=== PATIENT | female | born 1975 | race Caucasian/White ===

== ENCOUNTER 2016-10-27 02:34 | Emergency (ER) | payer MEDICARE, MEDICAID ==
[~2016-10-27] VITALS: Ht 172.7 cm; Wt 153.8 kg
[~2016-10-27 02:34] MED LIST: TRAM50TA PO
[2016-10-27] MEDS ORDERED: IV NORMAL SALINE 1000ML BAG 1,000 ML IV SCH (03:15)
[2016-10-27 03:49] LABS: BASO # 0.1 x10^3/uL (0.0-0.2); BASO % 1 % (0-3); EOS % 3 % (0-3); HEMATOCRIT 36.8 % (36.0-47.0); HEMOGLOBIN 11.9 g/dL (12.0-15.5); LYMPH # 1.9 x10^3/uL (1.0-4.8); LYMPH % 34 % (24-48); MEAN CORPUSCULAR HEMOGLOBIN 28 pg (25-35); MEAN CORPUSCULAR HGB CONC 33 g/dL (31-37); MEAN CORPUSCULAR VOLUME 85 fL (79-100); MONO % 9 % (0-9); NEUT % 53 % (31-73); PLATELET COUNT 180 x10^3/uL (140-400); RED BLOOD COUNT 4.31 x10^6/uL (3.50-5.40); RED CELL DISTRIBUTION WIDTH 14.1 % (11.5-14.5); WHITE BLOOD COUNT 5.6 x10^3/uL (4.0-11.0)
[2016-10-27] MEDS ORDERED: INSULIN REGULAR 100 UNIT/ML 10ML VIAL. IV ONE (04:00)
[2016-10-27 04:02] LABS: CALCIUM 9.4 mg/dL (8.5-10.1); GFR 60.5
[2016-10-27 04:07] LABS: ALBUMIN/GLOBULIN RATIO 0.7 (1.0-1.7); TOTAL BILIRUBIN 0.5 mg/dL (0.2-1.0); TOTAL PROTEIN 7.3 g/dL (6.4-8.2)
[2016-10-27 04:08] LABS: BILIRUBIN,URINE NEGATIVE (NEG); GLUCOSE,URINE >=1000 mg/dL (NEG); NITRITE,URINE NEGATIVE (NEG); PROTEIN,URINE NEGATIVE (NEG-TRACE); UROBILINOGEN,URINE 0.2 mg/dL (0.2 mg/dL)
[2016-10-27 04:09] LABS: NEG OBC SER NEG; POS OBC SER POS
[2016-10-27 04:16] LABS: BACTERIA,URINE FEW /HPF (0-FEW); RBC,URINE 0 /HPF (0-2); SQUAMOUS EPITHELIAL CELL,UR FEW /LPF; YEAST,URINE PRESENT /HPF
[2016-10-27 04:29] VITALS: BP 117/71
[2016-10-27] MEDS ORDERED: ONDA4TAB10 SL (04:34)
--- NOTE | 2016-10-27 04:34 | PHYS DOC ---
Past Medical History Past Medical History: Diabetes-Type II, High Cholesterol Additional Past Medical Histor: GORLIN'S SYNDROME Past Surgical History: Cholecystectomy, Other Additional Past Surgical Histo: CYST REMOVAL Alcohol Use: None Drug Use: None Adult General Chief Complaint Chief Complaint: HYPERGLYCEMIA HPI HPI Patient is a 41 year old with a history significant for atrial fibrillation, asthma, diabetes, hypertension presents ER today secondary to an elevated blood sugar 495. Patient reports that she takes Tarceva for her diabetes. Patient denies any fevers shakes chills nausea vomiting diarrhea cough cold runny nose abdominal pain chest pain shortness of breath. Patient reports that her doctor is aware of her blood sugar being elevated and they have tried to see the doctor on insulin. Patient denies any dysuria frequency or urgency. Patient denies any polyuria polydipsia. Patient's physical exam is unremarkable. She is alert awake oriented 3. She is morbidly obese. Patient's labs in the ED were all unremarkable. Patient's blood sugar was elevated however there was no anion gap and no acidosis. Patient's UA did not reveal any ketones. Patient is given a liter of saline in the ED as well as 5 units of insulin and will be discharged home in stable condition with instructions to follow-up with her primary care doctor with her blood sugar diary so that they can assess her need for insulin and continue with her plan for dietary control. Review of Systems Review of Systems Constitutional: Denies fever or chills [] Eyes: Denies change in visual acuity, redness, or eye pain [] All other review systems are negative except as documented in the history of present illness portion. Current Medications Current Medications Current Medications Medications (Trade) Dose Ordered Sig/Madonna Start Time Stop Time Status Last Admin Dose Admin Insulin Human Regular (Novolin R Vial) 5 unit 1X ONCE 10/27/16 04:00 10/27/16 04:01 DC 10/27/16 03:43 5 UNIT Sodium Chloride (Iv Sodium Chloride 0.9% 1000ml Bag) 1,000 ml @ 1,000 mls/hr Q1H 10/27/16 03:15 10/27/16 04:14 DC 10/27/16 03:15 1,000 MLS/HR Allergies Allergies Allergies Coded Allergies Type Severity Reaction Last Updated Verified Penicillins Allergy Intermediate 10/27/16 Yes adhesive Allergy Intermediate 10/27/16 Yes amoxicillin Allergy Intermediate 10/27/16 Yes black pepper Allergy Intermediate 10/27/16 Yes hydrogen peroxide Allergy Intermediate 10/27/16 Yes latex Allergy Intermediate 10/27/16 Yes onion Allergy Intermediate 10/27/16 Yes sumatriptan Allergy Intermediate 10/27/16 Yes Physical Exam Physical Exam Constitutional: Well developed, well nourished, no acute distress, non-toxic appearance. [] HENT: Normocephalic, atraumatic, bilateral external ears normal, oropharynx moist, no oral exudates, nose normal. [] Eyes: PERRLA, EOMI, conjunctiva normal, no discharge. [] Neck: Normal range of motion, no tenderness, supple, no stridor. [] Cardiovascular:Heart rate regular rhythm, no murmur [] Lungs & Thorax: Bilateral breath sounds clear to auscultation [] Abdomen: Bowel sounds normal, soft, no tenderness, no masses, no pulsatile masses. [] Extremities: No tenderness, no cyanosis, no clubbing, ROM intact, no edema. [] Neurologic: Alert and oriented X 3, normal motor function, normal sensory function, no focal deficits noted. [] Psychologic: Affect normal, judgement normal, mood normal. [] Current Patient Data Vital Signs Vital Signs Date Time Temp Pulse Resp B/P Pulse Ox O2 Delivery O2 Flow Rate FiO2 10/27/16 02:48 96.8 90 20 119/72 96 Room Air 96.8 Lab Values Laboratory Tests Test 10/27/16 02:48 10/27/16 03:30 10/27/16 03:45 10/27/16 03:55 Glucose (Fingerstick) 364mg/dL (70-99) H White Blood Count 5.6x10^3/uL (4.0-11.0) Red Blood Count 4.31x10^6/uL (3.50-5.40) Hemoglobin 11.9g/dL (12.0-15.5) L Hematocrit 36.8% (36.0-47.0) Mean Corpuscular Volume 85fL (79-100) Mean Corpuscular Hemoglobin 28pg (25-35) Mean Corpuscular Hemoglobin Concent 33g/dL (31-37) Red Cell Distribution Width 14.1% (11.5-14.5) Platelet Count 180x10^3/uL (140-400) Neutrophils (%) (Auto) 53% (31-73) Lymphocytes (%) (Auto) 34% (24-48) Monocytes (%) (Auto) 9% (0-9) Eosinophils (%) (Auto) 3% (0-3) Basophils (%) (Auto) 1% (0-3) Neutrophils # (Auto) 3.0x10^3uL (1.8-7.7) Lymphocytes # (Auto) 1.9x10^3/uL (1.0-4.8) Monocytes # (Auto) 0.5x10^3/uL (0.0-1.1) Eosinophils # (Auto) 0.1x10^3/uL (0.0-0.7) Basophils # (Auto) 0.1x10^3/uL (0.0-0.2) Sodium Level 135mmol/L (136-145) L Potassium Level 4.0mmol/L (3.5-5.1) Chloride Level 99mmol/L (98-107) Carbon Dioxide Level 32mmol/L (21-32) Anion Gap 4 (6-14) L Blood Urea Nitrogen 14mg/dL (7-20) Creatinine 1.0mg/dL (0.6-1.0) Estimated GFR (Cockcroft-Gault) 60.5 BUN/Creatinine Ratio 14 (6-20) Glucose Level 341mg/dL (70-99) H Calcium Level 9.4mg/dL (8.5-10.1) Total Bilirubin 0.5mg/dL (0.2-1.0) Aspartate Amino Transferase (AST) 12U/L (15-37) L Alanine Aminotransferase (ALT) 16U/L (14-59) Alkaline Phosphatase 51U/L (46-116) Total Protein 7.3g/dL (6.4-8.2) Albumin 3.0g/dL (3.4-5.0) L Albumin/Globulin Ratio 0.7 (1.0-1.7) L Serum Test, Qualitative Negative (NEG) Urine Collection Type Unknown Urine Color Yellow Urine Clarity Clear Urine pH 5.0 Urine Specific Gould >=1.030 Urine Protein Negativemg/dL (NEG-TRACE) Urine Glucose (UA) >=1000mg/dL (NEG) Urine Ketones (Stick) Negativemg/dL (NEG) Urine Blood Negative (NEG) Urine Nitrite Negative (NEG) Urine Bilirubin Negative (NEG) Urine Urobilinogen Dipstick 0.2mg/dL (0.2 mg/dL) Urine Leukocyte Esterase Negative (NEG) Urine RBC 0/HPF (0-2) Urine WBC 1-4/HPF (0-4) Urine Squamous Epithelial Cells Few/LPF Urine Bacteria Few/HPF (0-FEW) Urine Mucus Slight/LPF Urine Yeast Present/HPF POC Urine HCG, Qualitative Hcg negative (Negative) Laboratory Tests 10/27/16 03:30 Laboratory Tests 10/27/16 03:30 EKG EKG [] Radiology/Procedures Radiology/Procedures [] Course & Med Decision Making Course & Med Decision Making Pertinent Labs and Imaging studies reviewed. (See chart for details) [] Dragon Disclaimer Dragon Disclaimer This electronic medical record was generated, in whole or in part, using a voice recognition dictation system. Departure Departure Impression: Primary Impression: Hyperglycemia Additional Impression: Nausea Disposition: 01 HOME, SELF-CARE Condition: IMPROVED Referrals: SHAQ MATUTE MD (PCP) Patient Instructions: Insulin Treatment in Diabetes, Type 2 Diabetes Mellitus, Adult Scripts Ondansetron (Zofran Odt)4 Mg Tab.rapdis1 Tab SL Q6HRS PRN NAUSEA #12 TAB Prov:JEREMIAS HAMM MD 10/27/16 Problem Qualifiers JEREMIAS HAMM MD Oct 27, 2016 04:34
[2016-10-27] MEDS ORDERED: ONDANSETRON PF 4 MG/2 ML VIAL. IV ONE (05:00)
== END 2016-10-27 04:55 | disposition home or self-care (01) ==
LOC: ER 02:34
DX: E11.65 Type 2 diabetes mellitus with hyperglycemia (principal); R11.0 Nausea; I48.91 Unspecified atrial fibrillation; E78.00 Pure hypercholesterolemia, unspecified; J45.909 Unspecified asthma, uncomplicated; I10 Essential (primary) hypertension; Z90.49 Acquired absence of other specified parts of digestive tract; Z88.0 Allergy status to penicillin; Z88.1 Allergy status to other antibiotic agents; Z91.018 Allergy to other foods; Z91.040 Latex allergy status; Z88.8 Allergy status to other drugs, medicaments and biological substances
CPT/HCPCS: 36415; 80053; 81001; 81025; 82947; 84703; 85027; 96361; 96374; 96375; 99284; J2405; J7030; J1815

== ENCOUNTER → 2018-10-17 | Outpatient (CLI) | payer MEDICARE, MEDICAID ==
[2017-08-06 15:00] VITALS: BP 109/66
[~2018-10-17] MED LIST changes: +ARIP15TA3 PO; +ATOR40TA59 PO; +BENZ1TAB5 PO; +BUPR300T4 PO; +CANA300T PO; +CETI10TA16 PO; +CYCL10TA2 PO; +DULO60CA6 PO; +ESCITALOPRAM OX10 MG PO; +GABA600T7 PO; +INSU100I30 SQ; +LEVO100T PO; +LEVO75TA5 PO; +LORA1TAB PO; +METF500T16 PO; +OMEP20TA8 PO; +ONDA4TAB10 SL; +PIOG15TA42 PO; +PROP120C3 PO; +RIZA10TA10 PO; +VALA500T PO; +VENL37.57 PO
--- NOTE | 2018-10-17 15:11 | KCIC ---
MRI of the lumbar spine without contrast 10/17/2018 CLINICAL HISTORY: Chronic low back pain which radiates down both feet. TECHNIQUE: Unenhanced T1-weighted and T2-weighted sagittal and axial and inversion recovery sagittal images of the lumbar spine were obtained. FINDINGS: Comparison is made to a CT scan of the lumbar spine dated 12/02/2016. Minimal S-shaped curvature of the thoracolumbar spine is seen. Degenerative signal changes and loss of height are seen involving the L5-S1 discs. Degenerative signal changes are seen within the marrow surrounding this disc. The conus medullaris is normal morphology, position, and signal characteristics. The L1-2, L2-3 and L3-4 disc spaces are within normal limits. At the L4-5 disc space is a mild generalized disc bulge. This is eccentric to the left. Degenerative changes are seen involving the facet joints bilaterally. There is mild ligamentum flavum hypertrophy bilaterally. These findings do not result in significant central spinal canal or neural foraminal stenosis. At the L5-S1 disc space there is a mild generalized disc bulge. Degenerative changes are seen involving the facet joints bilaterally. These findings when combined do not result in significant central spinal canal or neural foraminal stenosis. IMPRESSION: The changes of mild degenerative disc disease are seen involving the lower lumbar spine. These findings do not result in significant central spinal canal or neural foraminal stenosis at any level. Electronically signed by: You Gonsalez MD (10/17/2018 3:08 PM) [email or web address]
== END | disposition home or self-care (01) ==
LOC: KCIC MRI 13:18
PROVIDERS: ATTEND Physician Assistant
DX: M51.16 Intervertebral disc disorders with radiculopathy, lumbar region (principal); M47.26 Other spondylosis with radiculopathy, lumbar region; M47.897 Other spondylosis, lumbosacral region
CPT/HCPCS: 72148

== ENCOUNTER 2020-09-26 10:14 | Emergency (ER) | payer MEDICARE ==
[~2020-09-26] VITALS: Ht 172.7 cm; Wt 130.0 kg
[~2020-09-26 10:14] MED LIST changes: +ACET325T9 PO; +ACYC800T88 PO; +AZIT1PAC PO; +BENZ-8 PO; -BUPR300T4 PO; +BUPR300T92 PO; +DESV50TA PO; +DICY10CA3 PO; +DOCU-153 PO; +FURO-69 PO; +GUAI100L12 PO; +GUAI600T47 PO; +HYDR25TA PO; +INSU100V37 SQ; +INSU100V8 SQ; +IPRA3AMP29 NEB; +LACT1CAP19 PO; +LEVO-101 PO; -LEVO100T PO; +LEVO137T3 PO; +METF10007 PO; +MULT-245 PO; +OMEP40CA7 PO; +PIND5TAB PO; -RIZA10TA10 PO; +RIZA10TA91 PO; +SEMA0.25 SQ; +TOPI100T42 PO; -VALA500T PO; +VALA500T9 PO; +VILA10TA PO
--- NOTE | 2020-09-26 10:55 | RAD ---
XR CHEST 1V Clinical Indication: Reason: soa, COUGH Comparison: AP chest August 06, 2017. Findings: The cardiomediastinal silhouette is normal. Lungs are clear. There is no pneumothorax. No pleural eff usion is appreciated. No acute bone abnormality. Chronic deformities of right and left ribs. IMPRESSION: No acute cardiopulmonary process. Electronically signed by: Jefferson Andre MD (09/26/2020 10:46 AM) [id number]
--- NOTE | 2020-09-26 11:38 | PHYS DOC ---
Past Medical History Past Medical History: Diabetes-Type II, High Cholesterol Additional Past Medical Histor: GORLIN'S SYNDROME Past Surgical History: Cholecystectomy, Other Additional Past Surgical Histo: CYST REMOVAL Smoking Status: Former Smoker Alcohol Use: None Drug Use: None General Adult EDM: Chief Complaint: SHORTNESS OF BREATH HPI: HPI: 45 yo F diabetes, hypertension and obesity, tested positive for covid 5 days ago, presents to the ED brought in by EMS with concerns for shortness of breath and "I need this cough to go away," associated dry mouth and productive cough, requesting ice. Reports positive covid test at [facility] 1 week ago. No h/o dvt/pe. Review of Systems: Review of Systems: Constitutional: Denies fever or chills. [] Eyes: Denies change in visual acuity. [] HENT: Denies nasal congestion or sore throat. [] Respiratory: Denies hemoptysis or increased work of breathing Cardiovascular: Denies chest pain or edema. [] GI: Denies abdominal pain, nausea, vomiting, bloody stools or diarrhea. [] : Denies dysuria or hemoptysis Musculoskeletal: Denies back pain or joint pain or unilateral leg swelling Integument: Denies rash or diaphoresis Neurologic: Denies headache, neck stiffness or focal weakness or sensory changes. [] Endocrine: Denies polyuria or polydipsia. [] Lymphatic: Denies swollen glands. [] Psychiatric: Denies depression or anxiety. [] Heart Score: Risk Factors: Risk Factors: DM, Current or recent (<one month) smoker, HTN, HLP, family history of CAD, obesity. Risk Scores: Score 0 - 3: 2.5% MACE over next 6 weeks - Discharge Home Score 4 - 6: 20.3% MACE over next 6 weeks - Admit for Clinical Observation Score 7 - 10: 72.7% MACE over next 6 weeks - Early Invasive Strategies Allergies: Allergies: Allergies Coded Allergies Type Severity Reaction Last Updated Verified Penicillins Allergy Intermediate 10/27/16 Yes Sulfa (Sulfonamide Antibiotics) Allergy Intermediate 11/18/19 Yes adhesive Allergy Intermediate 10/27/16 Yes amoxicillin Allergy Intermediate 10/27/16 Yes black pepper Allergy Intermediate 10/27/16 Yes hydrogen peroxide Allergy Intermediate 10/27/16 Yes latex Allergy Intermediate 10/27/16 Yes onion Allergy Intermediate 10/27/16 Yes sumatriptan Allergy Intermediate 10/27/16 Yes Physical Exam: PE: Constitutional: Well developed, well nourished, no acute distress, non-toxic appearance. HENT: Normocephalic, atraumatic, Eyes: EOMI, conjunctiva normal, no discharge. Neck: Normal range of motion, supple, Cardiovascular: S1/2 present, regular rhythm Lungs & Thorax: Speaking in full sentences, bilateral equal chest rise, no tachypnea or increased work of breathing, not requiring any supplemental oxygen Abdomen: soft, no tenderness, Skin: Warm, dry, no erythema, no rash. [] Back: No tenderness, no CVA tenderness. [] Extremities: No tenderness, no cyanosis, no unilateral or lower extremity edema Neurologic: Alert and oriented X 3, normal motor function, normal sensory function, no focal deficits noted. [] Psychologic: Affect normal, judgement normal, mood normal. [] Current Patient Data: Vital Signs: Vital Signs Date Time Temp Pulse Resp B/P (MAP) Pulse Ox O2 Delivery O2 Flow Rate FiO2 09/26/20 10:15 98.4 90 20 136/79 (98) 100 Room Air 98.4 EKG: EKG: Sinus rhythm 80 beats per minute, right axis deviation, normal intervals, T wave inversion aVL, no ST elevations or ST depressions Radiology/Procedures: Radiology/Procedures: IMAGING REPORT Signed PATIENT: TERRI HYDE ACCOUNT: [id number] : 1975 LOCATION: ER AGE: 45 SEX: F EXAM STATUS: REG ER ORD. PHYSICIAN: WES BARBA DO REASON: soa, COUGH PROCEDURE: PORTABLE CHEST 1V XR CHEST 1V Clinical Indication: Reason: soa, COUGH Comparison: AP chest August 06, 2017. Findings: The cardiomediastinal silhouette is normal. Lungs are clear. There is no pneumothorax. No pleural effusion is appreciated. No acute bone abnormality. Chronic deformities of right and left ribs. IMPRESSION: No acute cardiopulmonary process. Electronically signed by: Jefferson Andre MD (09/26/2020 10:46 AM) [id number] DICTATED and SIGNED BY: JEFFERSON ANDRE MD DATE: 09/26/20 [id number] [id number] REPORT Signed PATIENT: TERRI HYDE ACCOUNT: [id number] : 1975 LOCATION: ER AGE: 45 SEX: F EXAM STATUS: REG ER ORD. PHYSICIAN: WES BARBA DO REASON: soa, r/o pe omni 350 inj 100 mls PROCEDURE: CT ANGIOGRAPHY CHEST EXAM: CT Pulmonary Angiogram INDICATION: Reason: soa, r/o pe omni 350 inj 100 mls / Spl. Instructions: omni 350 inj 100 mls / History: TECHNIQUE: Multi-detector row images were acquired from the thoracic inlet through the upper abdomen with the use of IV contrast. Sagittal and coronal images were acquired from the transaxial data. MIP images of the pulmonary arteries were obtained. All CT scans performed at this facility utilize dose optimization techniques as appropriate to the exam, including the following: Automated exposure control and adjustment of the mA and/or KV according to patient size (this includes techniques or standardized protocols for targeted exams where dose is indication/reason for exam). IV CONTRAST: Administered COMPARISON: CT chest without IV contrast of 11/17/2019 FINDINGS: PULMONARY ARTERIES: Suboptimal bolus contrast opacification. No evidence of a large central pulmonary embolus. CARDIOVASCULAR: 4 vessel arch with normal variant arch origin of the left vertebral artery. Aorta is normal caliber. MEDIASTINUM & ARSALAN: No adenopathy or masses. Normal heart size. No pericardial effusion. LUNGS: Extensive bilateral groundglass opacities are now present. PLEURAL SPACE: No pleural effusions or pneumothorax. OSSEOUS & SOFT TISSUE: There is deformity to the ribs with partial fusion bilaterally, right greater than left at is unchanged from prior. ABDOMEN: The visualized portions of the upper abdomen are unremarkable. IMPRESSION: 1. No evidence of pulmonary emboli despite suboptimal pulmonary arterial opacification. 2. Multifocal bilateral groundglass opacities in the lungs, compatible with atypical pneumonia such as may be seen with Covid [address] Barba by telephone at 3:39 PM on 09/26/2020 Electronically signed by: Abel Rider MD (09/26/2020 3:39 PM) [id number] DICTATED and SIGNED BY: ABEL RIDER MD DATE: 09/26/20 [id number] 0 Course & Med Decision Making: Course & Med Decision Making Pertinent Labs and Imaging studies reviewed. (See chart for details) COVID-19 CRITERIA: The patient was evaluated during the global COVID-19 pandemic, and that diagnosis was suspected/considered upon their initial presentation. Their evaluation, treatment and testing was consistent with current guidelines for patients who present with complaints or symptoms that may be related to COVID-19. Concern for dyspnea associated with Covid test not requiring any supplemental oxygen. Suboptimal PE study with groundglass opacities, no main or lobar pulmonary emboli. Will discharge home with strict ED return precautions were given for neurologic deficits, chest pain, increased work of breathing, worsening or labored shortness of breath or hemoptysis. Encouraged urgent outpatient follow-up with PMD and pulmonology as needed. Life-threatening processes were considered but are low suspicion at this time, given history, physical exam and ED workup. Pt was educated on all prescription medications and adverse effects. All patient's questions were answered and pt was stable at time of discharge. Life/limb-threatening differential includes but is not limited to, ACS, dysrhythmia, pneumothorax or hemothorax, pulmonary embolus, pneumonia, bronchoconstriction, pulmonary edema, angioedema, epiglottitis, tracheitis, Butch's angina, RPA/DEICER ELEMENT WINDER MACHINE, anaphylaxis, angioedema, cardiac tamponade or murmurs, pericarditis, myocarditis, poisoning or toxicity, sepsis or autoimmune /neurologic disease. I spoken with the patient and her caregivers. I explained the patient's condition, diagnoses and treatment plan based on the information available to me at this time. I have answered the patient and her caregiver's questions and addressed any concerns. The patient and her caregivers have a good understanding of patient's diagnosis, condition and treatment plan as can be expected at this point. Vital signs have been stable. Patient's condition is stable and appropriate for discharge from the emergency department. Patient will pursue further outpatient evaluation with primary care physician or other designated or consulting physician as outlined in the discharge instructions. The patient and/or caregivers are agreeable to this plan of care and follow-up instructions have been explained in detail. The patient and/or caregivers have received these instructions in written form and have expressed an understanding of the discharge instructions. The patient and/or caregivers are aware that any significant change of condition or worsening of symptoms should prompt immediate return to this or the closest emergency department or call to 911. Viola Disclaimer: Dragrebecca Disclaimer: This electronic medical record was generated, in whole or in part, using a voice recognition dictation system. Departure Departure Impression: Primary Impression: COVID-19 Additional Impressions: Dyspnea Leukopenia Elevated d-dimer Ground glass opacity present on imaging of lung Cough Disposition: 01 DC HOME SELF CARE/HOMELESS Condition: STABLE Referrals: SHAQ MATUTE MD (PCP) within 1 week for re-evaluation Patient Instructions: Cough, Adult, Shortness of Breath Additional Instructions: FOLLOW UP WITH: [facility] Address: [address] [place] [address] Return to ED immediately if your oxygen level drops below 90% (purchase a pulse oximetry at a medical supply store), difficulties breathing including rapid breathing or increased work of breathing (skin sucking under ribs), chest pain or stroke-like symptoms (facial droop, speech changes, arm/leg weakness). You have been tested for or diagnosed with COVID-19. It is an infection caused by a new type of coronavirus. COVID-19 will cause cold-like or mild flu symptoms in most. It can cause more severe symptoms like problems breathing in some. There is no treatment for COVID-19. The body will clear the infection over time. Self-care will help to ease discomfort. Steps to Take: Self-Care Rest as needed. Healthy habits may help you feel better. Steps include: Choose healthy foods including fruits and vegetables. Drink water throughout the day. Get plenty of sleep each night. If you smoke, try to quit. It may ease breathing. Avoid alcohol. Keep Others Healthy The virus can spread to others. Droplets are released every time you sneeze or cough. The droplets can get into the mouth, nose, or eyes of people near you and lead to infection. To lower the chances of spreading COVID-19 to others: Stay at home until your doctor has said it is safe to leave. If you tested positive this will mean staying isolated until both of the following are true: At least 7 days have passed since the start of illness. You are free of fever for at least 72 hours without the use of medicine. During this time: - Avoid public areas, events, or transportation. Do not return to work or school until your doctor has said it is safe to do so. - Call ahead if you need to go to a medical center. Let them know you may have COVID-19. It will help them guide you where to go. They may also ask you to wear a facemask when you come to the office. - If you call for emergency medical services, let them know you may have COVID- 19. While at home: - Try to avoid close contact with others. Stay about 6 feet away. - If possible, spend most of your time in a separate room from others. - Use a face mask if you will be in close contact with others such as sharing a room or vehicle. - Have someone wipe down common surfaces in the home. Use household on site nurse every day on areas like doorknobs, counters, or sinks. - Cough or sneeze into a tissue. Throw the tissue away right after use. If a tissue is not available, cough or sneeze into your elbow. - Wash your hands often. Wash them after sneezing or coughing. Use soap and water and wash for at least 20 seconds. Alcohol based hand pipe cleaner can be used if soap and water is not available. - Do not prepare food for others. Avoid sharing personal items like forks, spoons, or toothbrushes. - Avoid close contact with pets while you are sick. There is no evidence of the virus passing to pets. This is a safety step until more is known about this virus. Isolation can be frustrating. Social interaction can help. Keep in touch with friends and family through phone and tech options. You can still interact with others in your home, just keep a safe distance of about 6 feet. Follow-up: Your doctors office will check in with you to see if there are any changes in your health. You may be asked to keep track of symptoms to share with them. They will also let you know when you are clear to be in public again. Problems to Look Out For: Contact your doctor if your recovery is not going as you expect. Get emergency care if you have problems such as: - Trouble breathing - Nonstop chest pain or pressure - Changes in awareness, confusion, or problems waking - Lips or face have bluish color - Worsening of symptoms If you think you have an emergency, call for emergency medical services right away. As taken from [facility] Benzonatate (TESSALON PERLE) 100 Mg Capsule 1 CAP PO TID for cough for 10 Days, #30 CAP Prov: WES BARBA DO 09/26/20 Guaifenesin/Dextromethorphan (MUCINEX DM ER 600-30 MG TABLET) 1 Each Tab.er.12h 1 TAB PO PRN BID PRN for cough and congestion for 14 Days, #28 TAB 0 Refills Prov: WES BARBA DO 09/26/20 WES BARBA DO Sep 26, 2020 11:38
[2020-09-26 11:44] LABS: BASO % 1 % (0-3); EOS % 1 % (0-3); HEMATOCRIT 42.1 % (36.0-47.0); HEMOGLOBIN 14.3 g/dL (12.0-15.5); LYMPH # 0.9 x10^3/uL (1.0-4.8); LYMPH % 29 % (24-48); MEAN CORPUSCULAR HEMOGLOBIN 29 pg (25-35); MEAN CORPUSCULAR HGB CONC 34 g/dL (31-37); MEAN CORPUSCULAR VOLUME 84 fL (79-100); MONO # 0.2 x10^3/uL (0.0-1.1); MONO % 8 % (0-9); NEUT % 62 % (31-73); PLATELET COUNT 125 x10^3/uL (140-400); RED CELL DISTRIBUTION WIDTH 12.7 % (11.5-14.5); WHITE BLOOD COUNT 3.2 x10^3/uL (4.0-11.0)
[2020-09-26 11:59] LABS: PREG TEST PT QUAL NEGATIVE (NEG)
[2020-09-26 12:00] LABS: CALCIUM 9.1 mg/dL (8.5-10.1); CREATININE 0.8 mg/dL (0.6-1.0); GFR 76.9; POTASSIUM 3.9 mmol/L (3.5-5.1)
[2020-09-26 12:04] LABS: ALBUMIN 3.2 g/dL (3.4-5.0); DIRECT BILIRUBIN 0.2 mg/dL (0.0-0.2); MAGNESIUM 1.8 mg/dL (1.8-2.4); TOTAL BILIRUBIN 0.5 mg/dL (0.2-1.0); TOTAL PROTEIN 7.4 g/dL (6.4-8.2)
[2020-09-26] MEDS ORDERED: IOHEXOL 350 MG/ML 100 ML VIAL. IV ONE (12:45)
[2020-09-26] MEDS ORDERED: CONTRAST GIVEN. MC PRN (12:45)
[2020-09-26] MEDS ORDERED: BENZONATATE 100 MG CAPSULE. PO ONE (15:00)
[2020-09-26] MEDS ORDERED: guaiFENesin DM 600/30MG 1 TAB TAB.ER.12H PO ONE (15:00)
--- NOTE | 2020-09-26 15:42 | RAD ---
EXAM: CT Pulmonary Angiogram INDICATION: Reason: soa, r/o pe omni 350 inj 100 mls / Spl. Instructions: omni 350 inj 100 mls / Hist ory: TECHNIQUE: Multi-detector row images were acquired from the thoracic inlet through the upper abdomen with the use of IV contrast. Sagittal and coronal images were acquired from the transaxial data. WI P images of the pulmonary arteries were obtained. All CT scans performed at this facility utilize dos e optimization techniques as appropriate to the exam, including the following: Automated exposure con trol and adjustment of the mA and/or KV according to patient size (this includes techniques or standa rdized protocols for targeted exams where dose is indication/reason for exam). IV CONTRAST: Administered COMPARISON: CT chest without IV contrast of 11/17/2019 FINDINGS: PULMONARY ARTERIES: Suboptimal bolus contrast opacification. No evidence of a large central pulmonar y embolus. CARDIOVASCULAR: 4 vessel arch with normal variant arch origin of the left vertebral artery. Aorta is normal caliber. MEDIASTINUM & ARSALAN: No adenopathy or masses. Normal heart size. No pericardial effusion. LUNGS: Extensive bilateral groundglass opacities are now present. PLEURAL SPACE: No pleural effusions or pneumothorax. OSSEOUS & SOFT TISSUE: There is deformity to the ribs with partial fusion bilaterally, right greater than left at is unchanged from prior. ABDOMEN: The visualized portions of the upper abdomen are unremarkable. IMPRESSION: 1. No evidence of pulmonary emboli despite suboptimal pulmonary arterial opacification. 2. Multifocal bilateral groundglass opacities in the lungs, compatible with atypical pneumonia such a s may be seen with Covid [address] Marti by telephone at 3:39 PM on 09/26/2020 Electronically signed by: Cristofer Rider MD (09/26/2020 3:39 PM) [id number]
[2020-09-26] MEDS ORDERED: BENZ100C PO (15:57)
[2020-09-26] MEDS ORDERED: GUAI-108 PO (15:57)
[2020-09-26 16:13] VITALS: BP 137/79
== END 2020-09-26 17:15 | disposition home or self-care (01) ==
LOC: ER 10:14
DX: U07.1 COVID-19 (principal); R06.00 Dyspnea, unspecified; D72.819 Decreased white blood cell count, unspecified; R79.89 Other specified abnormal findings of blood chemistry; R05 Cough; R06.02 Shortness of breath; E11.9 Type 2 diabetes mellitus without complications; E78.00 Pure hypercholesterolemia, unspecified; Z90.49 Acquired absence of other specified parts of digestive tract; Z87.891 Personal history of nicotine dependence; Z98.890 Other specified postprocedural states; Z88.0 Allergy status to penicillin; Z88.2 Allergy status to sulfonamides; Z88.1 Allergy status to other antibiotic agents; Z91.040 Latex allergy status; Z91.018 Allergy to other foods; Z88.8 Allergy status to other drugs, medicaments and biological substances
CPT/HCPCS: 36415; 71045; 71275; 80048; 80076; 83690; 83735; 83880; 84484; 84703; 85025; 85379; 99285; Q9967